=== PATIENT | male | born 1990 | race African-American/Black ===

== ENCOUNTER 2021-06-16 23:53 | Emergency (ER) | payer SELFPAY ==
[~2021-06-16] VITALS: Ht 170.2 cm; Wt 68.0 kg
[2021-06-16 23:53] VITALS: BP 150/85
--- NOTE | 2021-06-16 23:57 | NUR ---
Dr. Harden examining patient.
[2021-06-17] MEDS ORDERED: NACL 0.9% 1,000 ML IV ONE
[2021-06-17] MEDS ORDERED: diphenhydrAMINE 50 MG/ML VIAL IM ONE
[2021-06-17] MEDS ORDERED: HALOPERIDOL IM 5 MG/ML VIAL IM ONE
[2021-06-17] MEDS ORDERED: LORazepam 2 MG/ML VIAL IM ONE
--- NOTE | 2021-06-17 00:05 | NUR ---
[place] [facility] AT BEDSIDE
--- NOTE | 2021-06-17 00:23 | NUR ---
RETURN CALL FROM PT SISTER WHO SPOKE WITH DR. GRANDE
--- NOTE | 2021-06-17 00:31 | NUR ---
PT MOVED TO BED "CHAIR C"
[2021-06-17 00:49] LABS: BASOPHILS # (AUTO) 0.1 K/uL (0.00-0.22); BASOPHILS % (AUTO) 0.6 % (0.0-2.0); EOSINOPHILS # (AUTO) 0.7 K/uL (0-0.4); EOSINOPHILS % (AUTO) 6.5 % (0.0-4.0); LYMPHOCYTES # (AUTO) 2.5 K/uL (2.0-11.5); LYMPHOCYTES % (AUTO) 24.7 % (20.5-51.1); MEAN CORPUSCULAR HEMOGLOBIN 35 pg (27-31); MEAN CORPUSCULAR HGB CONC 36 g/dL (33-37); MEAN CORPUSCULAR VOLUME 99.7 fL (80-94); MONOCYTES # (AUTO) 0.9 K/uL (0.8-1.0); MONOCYTES % (AUTO) 8.9 % (1.7-9.3); NEUTROPHILS % (AUTO) 59.3 % (42.2-75.2); PLATELET COUNT (AUTO) 363 K/uL (140-450); RED BLOOD CELL COUNT(AUTO) 4.51 MIL/uL (4.20-6.10); RED CELL DISTRIBUTION WIDTH 12.8 % (11.6-13.7); WHITE BLOOD COUNT (AUTO) 10.1 K/uL (4.8-10.8)
--- NOTE | 2021-06-17 01:06 | NUR ---
PT WAS LAYING IN BED SLEEPING WITH HOB IN SEMI FOWLERS POSITION WITH RAILS UP X2 AND BED IN LOWEST SETTING. PT WAS SNORING AND STARTED TO COUGH AND GAG. PT WAS PLACED IN HIGH FOWLERS, PLACED ON 2 L/MIN NASAL CANULA, AND PULSE-OXIMETRY. PT REMAINED SLEEPING AND IS IN NO RESPIRATORY DISTRESS.
[2021-06-17] MEDS ORDERED: ONDANSETRON 4 MG/2 ML VIAL ONE (01:08)
[2021-06-17] MEDS ORDERED: ONDANSETRON 4 MG/2 ML VIAL IVP ONE (01:20)
[2021-06-17 01:29] LABS: ALBUMIN 4.1 g/dL (3.4-5.0); ANION GAP 16.9 (8-16); CARBON DIOXIDE 26.5 mmol/L (21-32); POTASSIUM 3.4 mmol/L (3.5-5.1); TOTAL BILIRUBIN 0.9 mg/dL (0.0-1.0)
--- NOTE | 2021-06-17 05:39 | NUR ---
IV removed, catheter intact and site benign. Applied folded 4x4 gauze and tape to stop bleeding.
--- NOTE | 2021-06-17 05:44 | NUR ---
called sister Swati-- no answer at this time.
[2021-06-17 05:46] VITALS: BP 150/85
--- NOTE | 2021-06-17 05:46 | NUR ---
Patient discharged with v/s stable. Written and verbal after care instructions given and explained. Patient verbalized understanding. Ambulatory with steady gait. ID band removed. All questions addressed prior to discharge. Advised to follow up with PMD.
--- NOTE | 2021-06-17 05:46 | NUR ---
patient unable to urinate.
--- NOTE | 2021-06-17 05:51 | NUR ---
called sister Swati-- no answer at this time.
--- NOTE | 2021-06-17 06:02 | NUR ---
called -- no answer at this time #[id number]
== END 2021-06-17 05:46 | disposition home or self-care (01) ==
LOC: EDBD 23:53 → MED 23:53
DX: F10.129 Alcohol abuse with intoxication, unspecified (principal); Y90.9 Presence of alcohol in blood, level not specified
CPT/HCPCS: 36415; 80053; 85025; 96361; 96372; 96374; 99284; G0482; J1200; J1630; J2060; J2405; J7030

== ENCOUNTER 2021-09-05 01:08 | Emergency (ER) | payer SELFPAY ==
[~2021-09-05] VITALS: Ht 167.6 cm; Wt 70.8 kg
[2021-09-05 01:18] VITALS: BP 117/77
[2021-09-05] MEDS ORDERED: BACITRACIN OINT 500 UNITS/GM PKT TP ONE (01:25)
== END 2021-09-05 01:41 ==
LOC: MED 01:08
DX: S00.81XA Abrasion of other part of head, initial encounter (principal); W19.XXXA Unspecified fall, initial encounter; Y93.01 Activity, walking, marching and hiking; Y92.89 Other specified places as the place of occurrence of the external cause; Y99.8 Other external cause status
CPT/HCPCS: 99283